=== PATIENT | female | born 1975 | race Caucasian/White ===

== ENCOUNTER 2017-03-04 21:31 | Emergency (ER) | payer MEDICAID ==
[2017-03-04] MEDS ORDERED: PERCOCET 5-3251 EACH (21:53)
[2017-03-04] MEDS ORDERED: FIORICET 50-301 EAC1 PO (21:54)
[2017-03-04] MEDS ORDERED: CYCLOBENZAPRINE10 M1 PO (21:55)
[2017-03-04] MEDS ORDERED: BUPROPION XL300 M1 PO (21:55)
[2017-03-04] MEDS ORDERED: XANAX1 M1 PO (21:55)
[2017-03-04] MEDS ORDERED: DEXILANT60 M1 PO (21:56)
[2017-03-04] MEDS ORDERED: LOPID600 M1 PO (21:56)
[2017-03-04] MEDS ORDERED: INVOKANA100 MG PO (21:56)
[2017-03-04] MEDS ORDERED: TAPAZOLE10 M1 PO (21:57)
[2017-03-04] MEDS ORDERED: LANTUS100 UNITS/ SC ×2 (21:57)
[2017-03-04] MEDS ORDERED: TOPROL XL25 M1 PO (21:58)
[2017-03-04 22:58] LABS: BASO % 0.5 % (0-2); EOS % 4.5 % (0-7); EOSINOPHIL ABSOLUTE COUNT 0.4 tho/cmm (0.0-0.7); HCT-HEMATOCRIT 38.4 % (34.0-49.0); IMMATURE GRANULOCYTES ABSOLUTE 0.03 tho/cmm (0-0.03); IMMATURE GRANULOCYTES PERCENT 0.4 % (0-0.3); LYMPH % 31.8 % (20-45); LYMPH ABSOLUTE COUNT 2.6 tho/cmm (0.8-4.5); MCH (MEAN CORPUSCULAR HGB) 29.1 pg (28.0-32.0); MCHC MEAN CORPUSCULAR HGB CONC 33.9 % (32.0-36.0); MCV (MEAN CELL VOLUME) 85.9 fl (82.0-96.0); MEAN PLATELET VOLUME 11.5 cmc (9.4-12.4); MONO % 4.2 % (0-12); MONOCYTE ABSOLUTE COUNT 0.3 tho/cmm (0.0-1.2); NEUTROPHIL ABSOLUTE COUNT 4.7 tho/cmm (1.6-8.0); NEUTROPHIL-AUTOMATED 4.7 tho/cmm (1.6-8.0); NEUTROPHILS % 58.6 % (40-80); PLATELET COUNT 311 tho/cmm (150-450); RED BLOOD COUNT 4.47 mil/cmm (4.00-5.20); RED CELL DISTRIBUTION WIDTH 13.9 % (12.4-16.4)
[2017-03-04 23:12] LABS: ALB/GLOB RATIO 0.8 (0.8-2.0); ALBUMIN 3.2 g/dl (3.5-5.0); ALKALINE PHOSPHATASE 107 U/L (33-138); ALT/SGPT 21 U/L (12-78); ANION GAP 11 mmol/L (0-20); AST/SGOT 14 U/L (10-40); BILIRUBIN,TOTAL 0.1 mg/dl (0-1.5); BLOOD UREA NITROGEN 12 mg/dl (6-24); CALCIUM 8.8 mg/dl (8.5-10.5); CARBON DIOXIDE-VENOUS 26 mmol/L (22-32); CHLORIDE 106 mmol/l (96-110); GLUCOSE 215 mg/dL (70-110); POTASSIUM 3.1 mmol/L (3.7-5.1); SODIUM 140 mmol/L (135-145); eGFR VALUE FOR BLACK >90 mL/Min
[2017-03-04 23:46] LABS: URINE APPEARANCE CLEAR; URINE BILIRUBIN NEGATIVE (NEG); URINE BLOOD NEGATIVE (NEG); URINE COLOR YELLOW; URINE GLUCOSE (UA) LARGE (NEG); URINE KETONE NEGATIVE (NEG); URINE LEUKOCYTE ESTERASE NEGATIVE (NEG); URINE NITRITE NEGATIVE (NEG); URINE PROTEIN NEGATIVE (NEG); URINE SPECIFIC GRAVITY 1.015 (1.003-1.030)
[2017-03-05] MEDS ORDERED: ZOFRAN4 M2 PO (00:19)
[2017-07-03] MEDS ORDERED: ZANAFLEX4 M2 PO (12:26)
[2017-07-03] MEDS ORDERED: LEVEMIR100 UNITS/ SC ×2 (12:27)
[2017-07-03] MEDS ORDERED: BIOTIN10000 MC1 PO (12:29)
[2017-07-03] MEDS ORDERED: RESTORIL15 M1 PO (12:33)
== END 2017-03-05 00:26 ==
LOC: EDMED 21:31
PROVIDERS: Nurse Practitioner Family
DX: G43.909 Migraine, unspecified, not intractable, without status migrainosus (principal); R19.7 Diarrhea, unspecified; R10.11 Right upper quadrant pain; F17.210 Nicotine dependence, cigarettes, uncomplicated; Z90.49 Acquired absence of other specified parts of digestive tract; Z90.710 Acquired absence of both cervix and uterus; Z90.89 Acquired absence of other organs
CPT/HCPCS: J1885; J2405; J2765; J7030